=== PATIENT | male | born 1955 | race African-American/Black ===

== ENCOUNTER 2020-05-31 13:59 | Inpatient (IN) | payer MEDICARE, MEDICAID ==
[~2020-05-31] VITALS: Ht 185.4 cm; Wt 110.9 kg
[~2020-05-31 13:59] MED LIST: AMLO10TA4 PO; APIX2.5T MT; ASPI-1160 MT; CALC667C MT; CLOP75TA33 MT; FAMO20TA8 PO; FINA5TAB3 PO; HYDR-4135 MT; HYDR2TAB4 MT; INSLIS SUBCUT; LACT10SO7 MT; MUPI1OIN4 TP; ONDA4TAB5 MT; OXYC10TA85 PO
[2020-05-31] MEDS ORDERED: HYDROCODONE/ACETAMINOPHEN 5/325MG TABLET PO STA (14:54)
[2020-05-31] MEDS ORDERED: NITROGLYCERIN 0.4MG TABLET SL SL PRN (15:00)
[2020-05-31 15:29] LABS: BASOPHILS % 0.3 % (0.0-2.0); EOSINOPHILS % 1.7 % (0.0-5.0); HEMATOCRIT. 29.9 % (42.0-52.0); HEMOGLOBIN. 9.8 g/dL (14.0-18.0); LYMPHOCYTES % 7.6 % (20.0-50.0); MEAN CORPUSCULAR HEMOGLOBIN 31.7 pg (28.0-32.0); MEAN CORPUSCULAR VOLUME 96.8 fL (80.0-94.0); MEAN PLATELET VOLUME 6.6 fl (7.4-10.4); MONOCYTES % 10.8 % (2.0-8.0); NEUTROPHILS % 79.6 % (40.0-76.0); PLATELET 257 x1000/uL (130-400); RED BLOOD CELL COUNT 3.09 mill/uL (4.7-6.1); RED CELL DISTRIBUTION WIDTH 18.1 % (11.6-14.6)
[2020-05-31 15:30] LABS: CHLORIDE 97 mEq/L (98-107)
[2020-05-31 15:34] LABS: PROTHROMBIN TIME 10.6 sec (9.6-11.0)
[2020-05-31] MEDS ORDERED: HYDROMORPHONE HCL/PF 2MG/ML CPJ IV ONE (16:00)
[2020-05-31] MEDS ORDERED: MAGNESIUM/ALUMINUM HYDROXIDE/SIMETHICONE 30ML UDC PO PRN (19:15)
[2020-05-31] MEDS ORDERED: IPRATROPIUM/ALBUTEROL 0.5-3(2.5)MG/3ML NEB NEB PRN (19:15)
[2020-05-31] MEDS ORDERED: DIPHENHYDRAMINE 50MG/ML VIAL IV PRN (19:15)
[2020-05-31] MEDS ORDERED: LORAZEPAM 0.5MG TABLET PO PRN (19:15)
[2020-05-31] MEDS ORDERED: DEXTROSE 50% WATER 50ML SYRINGE IV PRN (19:15)
[2020-05-31] MEDS ORDERED: ACETAMINOPHEN 325MG TABLET PO PRN ×2 (19:15)
[2020-05-31] MEDS ORDERED: DOCUSATE SODIUM 100MG CAPSULE PO PRN (19:15)
[2020-05-31] MEDS ORDERED: TRAMADOL 50MG TABLET PO PRN (19:15)
[2020-05-31] MEDS ORDERED: ZOLPIDEM TARTRATE 5MG TABLET PO PRN (19:15)
[2020-05-31] MEDS ORDERED: ONDANSETRON HCL 4MG/2ML INJ IV PRN (19:15)
[2020-05-31] MEDS ORDERED: GUAIFENESIN 200MG/10ML SUGAR FREE UDC PO PRN (19:15)
[2020-05-31] MEDS ORDERED: CLONIDINE 0.1MG TABLET PO PRN (19:15)
[2020-05-31] MEDS ORDERED: ENOXAPARIN 40MG/0.4ML SYR SUBCUT SCH (19:15)
[2020-05-31] MEDS ORDERED: MORPHINE SULFATE 2 MG/ML CPJ (NOT FOR IM USE) IV PRN (19:15)
[2020-05-31] MEDS: APIXABAN 5 MG TABLET PO SCH (20:00)
[2020-05-31] MEDS: INSULIN LISPRO 100 UNITS/ML SUBCUT SCH (21:00)
[2020-05-31] MEDS: BLOOD SUGAR DIAGNOSTIC STRIP TEST SCH (21:00)
[2020-05-31] MEDS ORDERED: HYDRALAZINE HCL 50MG TABLET PO SCH (22:00)
[2020-05-31] MEDS: ASCORBIC ACID 500 MG TABLET PO SCH (22:40)
[2020-05-31] MEDS: FAMOTIDINE 20MG TABLET PO SCH (22:40)
[2020-06-01] VITALS: BP 171/61
[2020-06-01] MEDS: HYDRALAZINE HCL 50MG TABLET PO SCH ×4 (02:05→21:02)
[2020-06-01 04:00] VITALS: BP 165/50
[2020-06-01] MEDS: APIXABAN 5 MG TABLET PO SCH ×2 (06:05→17:36)
[2020-06-01] MEDS: BLOOD SUGAR DIAGNOSTIC STRIP TEST SCH ×4 (06:11→21:01)
[2020-06-01] MEDS: INSULIN LISPRO 100 UNITS/ML SUBCUT SCH ×4 (06:27→21:00)
[2020-06-01] MEDS ORDERED: IPRATROPIUM/ALBUTEROL 0.5-3(2.5)MG/3ML NEB NEB PRN (06:30)
[2020-06-01] MEDS ORDERED: GUAIFENESIN 200MG/10ML SUGAR FREE UDC PO PRN (06:30)
[2020-06-01] MEDS ORDERED: DOCUSATE SODIUM 100MG CAPSULE PO PRN (06:30)
[2020-06-01] MEDS ORDERED: DIPHENHYDRAMINE 50MG/ML VIAL IV PRN (06:30)
[2020-06-01] MEDS ORDERED: ACETAMINOPHEN 325MG TABLET PO PRN (06:30)
[2020-06-01] MEDS ORDERED: LORAZEPAM 0.5MG TABLET PO PRN (06:30)
[2020-06-01] MEDS ORDERED: MAGNESIUM/ALUMINUM HYDROXIDE/SIMETHICONE 30ML UDC PO PRN (06:30)
[2020-06-01] MEDS: TRAMADOL 50MG TABLET PO PRN ×2 (06:41→21:06)
[2020-06-01] MEDS: SEVELAMER CARBONATE 800 MG TABLET PO SCH ×3 (06:42→17:36)
[2020-06-01] MEDS: MORPHINE SULFATE 2 MG/ML CPJ (NOT FOR IM USE) IV PRN ×2 (07:15→18:57)
[2020-06-01] MEDS: ONDANSETRON HCL 4MG/2ML INJ IV PRN ×2 (07:42→21:09)
[2020-06-01 08:00] VITALS: BP 176/56
[2020-06-01] MEDS: ASPIRIN 81MG EC TABLET PO SCH (09:52)
[2020-06-01] MEDS: ASCORBIC ACID 500 MG TABLET PO SCH ×2 (09:52→21:03)
[2020-06-01] MEDS: FAMOTIDINE 20MG TABLET PO SCH ×2 (09:52→21:02)
[2020-06-01] MEDS: ZINC SULFATE 220 MG ( 50 ) CAPSULE PO SCH (09:52)
[2020-06-01] MEDS: CHOLECALCIFEROL (D3) 1000 UNIT TABLET PO SCH (09:52)
[2020-06-01] MEDS: CLOPIDOGREL 75MG TABLET PO SCH (09:52)
[2020-06-01 12:00] VITALS: BP 160/58
[2020-06-01] MEDS: ACETAMINOPHEN 325MG TABLET PO PRN ×2 (13:11→18:29)
[2020-06-01 16:00] VITALS: BP 150/58
[2020-06-01] MEDS: NITROGLYCERIN 0.4MG TABLET SL SL PRN (18:29)
[2020-06-01] MEDS ORDERED: BISACODYL 10MG SUPP PR PRN (19:00)
[2020-06-01 20:00] VITALS: BP 170/60
[2020-06-01] MEDS ORDERED: ZOLPIDEM TARTRATE 5MG TABLET PO PRN (21:00)
[2020-06-02] VITALS: BP 165/61
[2020-06-02] MEDS: CLONIDINE 0.1MG TABLET PO PRN ×3 (00:08→15:16)
[2020-06-02] MEDS: MORPHINE SULFATE 2 MG/ML CPJ (NOT FOR IM USE) IV PRN ×4 (00:09→12:31)
[2020-06-02 04:00] VITALS: BP 150/54
[2020-06-02] MEDS: ONDANSETRON HCL 4MG/2ML INJ IV PRN (04:35)
[2020-06-02] MEDS: BLOOD SUGAR DIAGNOSTIC STRIP TEST SCH ×2 (06:20→11:44)
[2020-06-02] MEDS: APIXABAN 5 MG TABLET PO SCH (06:20)
[2020-06-02] MEDS: INSULIN LISPRO 100 UNITS/ML SUBCUT SCH ×2 (06:21→11:58)
[2020-06-02] MEDS: HYDRALAZINE HCL 50MG TABLET PO SCH ×2 (06:21→13:59)
[2020-06-02] MEDS: ACETAMINOPHEN 325MG TABLET PO PRN ×2 (07:19→14:12)
[2020-06-02 08:00] VITALS: BP 163/55
[2020-06-02] MEDS: CHOLECALCIFEROL (D3) 1000 UNIT TABLET PO SCH (08:07)
[2020-06-02] MEDS: ZINC SULFATE 220 MG ( 50 ) CAPSULE PO SCH (08:07)
[2020-06-02] MEDS: ASPIRIN 81MG EC TABLET PO SCH (08:07)
[2020-06-02] MEDS: NITROGLYCERIN 0.4MG TABLET SL SL PRN ×2 (08:07→12:33)
[2020-06-02] MEDS: ASCORBIC ACID 500 MG TABLET PO SCH (08:07)
[2020-06-02] MEDS: FAMOTIDINE 20MG TABLET PO SCH (08:07)
[2020-06-02] MEDS: SEVELAMER CARBONATE 800 MG TABLET PO SCH ×2 (08:08→11:58)
[2020-06-02] MEDS: CLOPIDOGREL 75MG TABLET PO SCH (08:08)
[2020-06-02] MEDS: TRAMADOL 50MG TABLET PO PRN (11:35)
[2020-06-02 12:00] VITALS: BP 158/61
[2020-06-02 12:31] VITALS: BP 158/61
== END 2020-06-02 15:50 | DRG 189 ==
LOC: ER 14:08 → SUPCPDRO 18:52 → EDBEDREQSVC 20:58 → EDBEDREQTM 20:58 → ENRESERV 21:06 → ER 23:30 → 5WST 06-01 00:14
PROVIDERS: ADMIT Internal Medicine; ATTEND Internal Medicine
PROC: 5A1D70Z Performance of Urinary Filtration, Intermittent, Less than 6 Hours Per Day (ICD-10-PCS; principal; 2020-06-01)
PROC: 5A1D70Z Performance of Urinary Filtration, Intermittent, Less than 6 Hours Per Day (ICD-10-PCS; 2020-06-02)
DX: J96.00 Acute respiratory failure, unspecified whether with hypoxia or hypercapnia (principal); N18.6 End stage renal disease; I13.2 Hypertensive heart and chronic kidney disease with heart failure and with stage 5 chronic kidney disease, or end stage renal disease; I16.1 Hypertensive emergency; E87.1 Hypo-osmolality and hyponatremia; E44.0 Moderate protein-calorie malnutrition; I69.354 Hemiplegia and hemiparesis following cerebral infarction affecting left non-dominant side; I50.30 Unspecified diastolic (congestive) heart failure; Z20.822 Contact with and (suspected) exposure to COVID-19; E11.22 Type 2 diabetes mellitus with diabetic chronic kidney disease; D64.9 Anemia, unspecified; I25.10 Atherosclerotic heart disease of native coronary artery without angina pectoris; G89.4 Chronic pain syndrome; G40.909 Epilepsy, unspecified, not intractable, without status epilepticus; Z88.6 Allergy status to analgesic agent; Z91.02 Food additives allergy status; Z91.011 Allergy to milk products; Z95.5 Presence of coronary angioplasty implant and graft; M94.0 Chondrocostal junction syndrome [Tietze]; D63.8 Anemia in other chronic diseases classified elsewhere
CPT/HCPCS: 36415; 71045; 80053; 80061; 82040; 82962; 83036; 83880; 84134; 84484; 85025; 87426; 93005; 94640; 99291; J1170; J1815; J2270; J2405